=== PATIENT | female | born 1985 | race Caucasian/White ===

== ENCOUNTER 2019-12-08 18:15 | Emergency (ER) | payer SELFPAY ==
[2019-12-08 18:23] VITALS: BP 116/87
[2019-12-08] MEDS ORDERED: NORMAL SALINE 1000 ML 1,000 ML IV ONE (18:58)
--- NOTE | 2019-12-08 19:00 | ER Document Report ---
ED Medical Screen (RME) - General Chief Complaint: High Blood Pressure Stated Complaint: SWEATING,BLOOD SUGAR ISSUES Time Seen by Provider: 12/08/19 18:57 Mode of Arrival: Ambulatory Information source: Patient Notes: Patient presents complaining of feeling fatigued with decreased energy. Patient states she has been out of her thyroid medicine for 6 months and out of her long-acting insulin for the past 2 months. Patient has a history of hypothyroidism and insulin-dependent diabetes. Patient has been using her short acting insulin to help manage her diabetes in the interim. Patient is waiting for her 's insurance to start so that she can get established with a primary doctor. I have greeted and performed a rapid initial assessment of this patient. A comprehensive ED assessment and evaluation of the patient, analysis of test results and completion of the medical decision making process will be conducted by additional ED providers. Physical Exam - Vital signs Vitals: Temp Pulse Resp BP Pulse Ox 98.2 F 95 16 116/87 H 100 12/08/19 18:22 12/08/19 18:22 12/08/19 18:22 12/08/19 18:22 12/08/19 18:22 - General General appearance: Appears well, Alert In distress: None Course - Vital Signs Vital signs: Temp Pulse Resp BP Pulse Ox 98.2 F 95 16 116/87 H 100 12/08/19 18:22 12/08/19 18:22 12/08/19 18:22 12/08/19 18:22 12/08/19 18:22
[2019-12-08 19:31] LABS: VENOUS BLOOD BASE EXCESS -4.3 mmol/L; VENOUS BLOOD HCO3 20.4 mmol/L (20-32); VENOUS BLOOD PCO2 36.8 mmHg (35-63); VENOUS BLOOD PH 7.36 (7.30-7.42)
[2019-12-08 19:35] LABS: ABSOLUTE EOSINOPHILS # (AUTO) 0.1 10^3/uL (0.0-0.6); ABSOLUTE LYMPHOCYTES (AUTO) 1.4 10^3/uL (0.5-4.7); ABSOLUTE MONOCYTES (AUTO) 0.4 10^3/uL (0.1-1.4); ABSOLUTE NEUT (AUTO) 1.8 10^3/uL (1.7-8.2); BASOPHILS % (AUTO) 0.6 % (0-2); EOSINOPHILS % (AUTO) 3.9 % (0-6); LYMPHOCYTES % (AUTO) 36.4 % (13-45); MEAN CORPUSCULAR HEMOGLOBIN 30.6 pg (27.0-33.4); MEAN CORPUSCULAR HGB CONC 33.4 g/dL (32.0-36.0); MEAN CORPUSCULAR VOLUME 92 fl (80-97); MONOCYTES % (AUTO) 10.1 % (3-13); PLATELET COUNT 315 10^3/uL (150-450); RED BLOOD COUNT 4.59 10^6/uL (3.72-5.28); RED CELL DISTRIBUTION WIDTH 13.9 % (11.5-14.0); TOTAL CELLS COUNTED % (AUTO) 100 %; WHITE BLOOD COUNT 3.7 10^3/uL (4.0-10.5)
[2019-12-08 19:44] LABS: ALBUMIN 3.7 g/dL (3.5-5.0); ALKALINE PHOSPHATASE 213 U/L (38-126); ANION GAP 10 (5-19); ASPARTATE AMINO TRANSFERASE 182 U/L (14-36); BILIRUBIN,DIRECT 0.3 mg/dL (0.0-0.4); BILIRUBIN,TOTAL 0.4 mg/dL (0.2-1.3); BLOOD UREA NITROGEN 8 mg/dL (7-20); CALCIUM 8.9 mg/dL (8.4-10.2); CARBON DIOXIDE 23 mmol/L (22-30); CHLORIDE 102 mmol/L (98-107); GLUCOSE 207 mg/dL (75-110); POTASSIUM 4.5 mmol/L (3.6-5.0); TOTAL PROTEIN 6.8 g/dL (6.3-8.2)
[2019-12-08 19:53] LABS: APPEARANCE,URINE SLIGHTLY-CLOUDY; BILIRUBIN,URINE SMALL (NEGATIVE); COLOR,URINE AMBER; GLUCOSE, URINE >=500 mg/dL (NEGATIVE); KETONES,URINE 20 mg/dL (NEGATIVE); LEUKOCYTE ESTERASE,URINE NEGATIVE (NEGATIVE); NITRITE,URINE NEGATIVE (NEGATIVE); PROTEIN,URINE 30 mg/dL (NEGATIVE); URINE SPECIFIC GRAVITY 1.033
[2019-12-08 20:01] LABS: FREE T3 2.01 pg/mL (2.77-5.27); FREE T4 (FREE THYROXINE) 0.73 ng/dL (0.78-2.19)
[2019-12-08 20:14] LABS: THYROID STIMULATING HORMONE 5.75 uIU/mL (0.47-4.68)
== END 2019-12-08 19:55 | disposition left against medical advice (07) ==
LOC: ER 18:15
DX: R53.83 Other fatigue (principal); E11.9 Type 2 diabetes mellitus without complications; Z79.4 Long term (current) use of insulin; E03.9 Hypothyroidism, unspecified; Z53.20 Procedure and treatment not carried out because of patient's decision for unspecified reasons
CPT/HCPCS: 36415; 80053; 81001; 82803; 84439; 84443; 84481; 84703; 85025; 99281

== ENCOUNTER 2020-02-14 13:27 | Emergency (ER) | payer SELFPAY ==
[2020-02-14] MEDS ORDERED: NORMAL SALINE 1000 ML 1,000 ML IV ONE ×3 (13:51→15:51)
--- NOTE | 2020-02-14 13:54 | ER Document Report ---
ED Medical Screen (RME) - General Chief Complaint: High Blood Sugar Stated Complaint: BLOOD SUGAR ISSUES Time Seen by Provider: 02/14/20 13:49 Mode of Arrival: Ambulatory Information source: Patient Notes: 34-year-old female presented to ED for complaint of heart pounding fruity smell frequent thirst frequent urination. She states she did not take her insulin for several days because she could not find it. She states her son found the insulin this morning and she took 40 units of the NovoLog and now her sugar is back down to normal but she is still having the frequent urination and the thirst that shakiness and the heart pounding. Will get the DKA blood work and have her reevaluated. States this is not the first time she has been in DKA and she does not want to just be left off because her sugar is normal at this time. I have greeted and performed a rapid initial assessment of this patient. A comprehensive ED assessment and evaluation of the patient, analysis of test r esults and completion of medical decision making process will be conducted by an additional ED providers. - Related Data Allergies/Adverse Reactions: No Known Allergies Allergy (Unverified 02/14/20 13:49) Past Medical History - Social History Drug Abuse: None Physical Exam - Vital signs Vitals: Temp Pulse Resp BP Pulse Ox 97.7 F 91 18 138/55 H 98 02/14/20 13:49 02/14/20 13:49 02/14/20 13:49 02/14/20 13:49 02/14/20 13:49 Course - Vital Signs Vital signs: Temp Pulse Resp BP Pulse Ox 97.7 F 91 18 138/55 H 98 02/14/20 13:49 02/14/20 13:49 02/14/20 13:49 02/14/20 13:49 02/14/20 13:49 - Laboratory Laboratory results interpreted by me: 02/14/20 13:34 POC Glucose 123 H
[2020-02-14 14:22] LABS: APPEARANCE,URINE CLOUDY; BILIRUBIN,URINE NEGATIVE (NEGATIVE); COLOR,URINE YELLOW; GLUCOSE, URINE 150 mg/dL (NEGATIVE); KETONES,URINE 80 mg/dL (NEGATIVE); LEUKOCYTE ESTERASE,URINE TRACE (NEGATIVE); NITRITE,URINE NEGATIVE (NEGATIVE); PROTEIN,URINE 30 mg/dL (NEGATIVE); URINE SPECIFIC GRAVITY 1.026
[2020-02-14] MEDS ORDERED: ONDANSETRON HCL INJ/PF 4 MG/2 ML SDV IV ONE (14:28)
--- NOTE | 2020-02-14 14:29 | ER Document Report ---
ED General <GLADIS MARTINI - Last Filed: 02/14/20 20:22> - General Mode of Arrival: Ambulatory <ELIGIO CLARK - Last Filed: 02/15/20 07:18> - General Chief Complaint: High Blood Sugar Stated Complaint: BLOOD SUGAR ISSUES Time Seen by Provider: 02/14/20 13:49 - HPI Notes: Chief complaint: High blood sugars, dizziness, nausea, excessive thirst and urination History of present illness: 34-year-old female type I diabetic being treated with insulin on a sliding scale regimen for the last 11 years with multiple prior hospitalizations for DKA comes in today because her sugar is out of control. She states that family was moving and her insulin was misplaced and she therefore went without this for about 48 hours. Her glucometer read "high" last night and she could not find the insulin to dose herself. This morning it read high again and her located her insulin around 11 AM. She took 40 units of regular at that time. She feels nauseated but is not vomiting. She says her vision is blurry and she complains of excessive thirst and urination. She says her muscles feel "achy all over". 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 She denies any cardiovascular problems or kidney or liver disease that she is aware of. She has no known allergies. 3 para 3 with 3 previous C-sections. Last menses 1 week ago described as normal. Patient smokes about a pack of cigarettes per day. She consumes alcohol socially. Denies drug abuse. (ELIGIO CLARK) - Related Data Allergies/Adverse Reactions: No Known Allergies Allergy (Unverified 02/14/20 13:49) Past Medical History - General Information source: Patient - Social History Smoking Status: Current Every Day Smoker Drug Abuse: None Family History: Reviewed & Not Pertinent Patient has homicidal ideation: No Endocrine Medical History: Reports: Hx Diabetes Mellitus Type 1, Hx Hypothyroidism Past Surgical History: Reports: Hx Section <ELIGIO CLARK - Last Filed: 02/15/20 07:18> Review of Systems <ELIGIO CLARK - Last Filed: 02/15/20 07:18> - Review of Systems Notes: Constitutional: Negative for fever. HENT: Negative for sore throat. Eyes: Slightly blurred vision. Cardiovascular: Negative for chest pain. Respiratory: Negative for shortness of breath. Gastrointestinal: As per HPI. Genitourinary: As per HPI. Musculoskeletal: As per HPI. Skin: Negative for rash. Neurological: Negative for headaches, focal weakness or numbness. 10 point ROS negative except as marked above and in HPI. (ELIGIO CLARK) Physical Exam <ELIGIO CLARK - Last Filed: 02/15/20 07:18> - Vital signs Vitals: Temp Pulse Resp BP Pulse Ox 97.7 F 91 18 138/55 H 98 02/14/20 13:49 02/14/20 13:49 02/14/20 13:49 02/14/20 13:49 02/14/20 13:49 - Notes Notes: GENERAL: Mildly obese female of approximately stated age who does not appear in acute distress.. SKIN: Good turgor no rashes. HEAD: Normocephalic atraumatic. EYES: Eyes appear somewhat sunken consistent with dehydration. PERRLA. EOMI. Conjunctivae and sclerae clear. EARS: CANALS AND TMS CLEAR. NOSE: CLEAR. MOUTH: Moist mucosa. Good dentition. No stridor or edema. No drooling. NECK: Supple. No masses or thyromegaly. No adenopathy. Carotids 2+ without bruits. No JVD. BACK: Symmetrical without tenderness. CHEST: Respirations unlabored. Breath sounds clear and symmetrical. Patient IS NOT exhibiting obvious Kussmaul respirations. HEART: Regular rhythm. No murmur gallop or rub. ABDOMEN: Mildly obese. Soft nontender without masses, organomegaly or rebound. Bowel sounds normally active. No bruits. GENITALIA: Deferred. EXTREMITIES: No edema. No calf tenderness. Cap refill less than 1.5 seconds. Dorsalis pedis and posterior tibial pulses 3+ and symmetrical. NEUROLOGICAL: GCS 15. Alert and oriented x3. Normal gait. Fluent speech. Cranial nerves II through XII intact. Sensorimotor and cerebellar normal. Nor mal tone. PSYCHIATRIC: Appropriate affect. (ELIGIO CLARK) Course - Laboratory Result Diagrams: 02/14/20 14:58 02/14/20 19:10 <GLADIS MARTINI - Last Filed: 02/14/20 20:22> - Laboratory Result Diagrams: 02/14/20 14:58 02/14/20 19:10 <ELIGIO CLARK - Last Filed: 02/15/20 07:18> - Re-evaluation Re-evalutation: 02/14/20 20:22 I taken over the care of this patient from Dr. Clark. Patient has received 3 L of saline, blood sugar is now 85. She feels much better. A BMP was ordered, is not a significant change in the patient's bicarb or anion gap. I discussed this with the patient she states she does not want be admitted to the hospital and is plan to sign out AMA. I explained to her that she may still be in mild DKA, however that she has her insulin she can dose herself with her normal dosing and continue to hydrate by mouth. If the symptoms are worsening or if there is other concerns she may return to emergency department for further evaluation and treatment. Patient and her are in agreement with this plan. (GLADIS MARTINI) 02/14/20 15:53 Patient's blood glucose is relatively normal at 118. Her bicarb is slightly low at 17. Her anion gap is not increased. Her urinalysis shows large ketones and glycosuria. Clinically she looks dehydrated. Venous blood gas was requested at the time of this patient's presentation was was apparently misplaced by lab and has had to be repeated with results remaini ng pending at this time. We going to give this lady a couple liters of normal saline and then repeat a basic metabolic profile. Her nausea has been resolved with administration of Zofran. She is taking fluids without difficulty. Care of this patient is turned over to Dr. Martini at 1600 hrs. of final disposition pending although anticipate she will be discharged home. (ELIGIO CLARK) - Vital Signs Vital signs: Temp Pulse Resp BP Pulse Ox 97.7 F 91 17 114/74 100 02/14/20 13:49 02/14/20 13:49 02/14/20 20:00 02/14/20 20:00 02/14/20 20:00 - Laboratory Laboratory results interpreted by me: 02/14/20 02/14/20 02/14/20 13:34 14:01 14:58 VBG pH VBG HCO3 Sodium 133.8 L Carbon Dioxide 17 L BUN 21 H Glucose 118 H POC Glucose 123 H Calcium 10.5 H Alkaline Phosphatase 128 H Urine Protein 30 H Urine Glucose (UA) 150 H Urine Ketones 80 H Urine Urobilinogen 2.0 H Ur Leukocyte Esterase TRACE H 02/14/20 02/14/20 15:43 19:10 VBG pH 7.28 L VBG HCO3 18.0 L Sodium 133.4 L Carbon Dioxide 16 L BUN Glucose POC Glucose Calcium Alkaline Phosphatase Urine Protein Urine Glucose (UA) Urine Ketones Urine Urobilinogen Ur Leukocyte Esterase - EKG Interpretation by Me Additional EKG results interpreted by me: 02/14/20 15:52 Twelve-lead EKG reviewed by me contemporaneously: 1440 hrs. Indication for study: Dehydration/weakness Rhythm: Normal sinus Rate: 72 Intervals: Normal QRS axis: +[address]/T wave changes: None Comparison with prior tracing: None Interpretation: Normal tracing (ELIGIO CLARK) Discharge <GLADIS MARTINI - Last Filed: 02/14/20 20:22> <ELIGIO CLARK - Last Filed: 02/15/20 07:18> - Discharge Clinical Impression: Metabolic acidosis Diabetic ketoacidosis Qualifiers: Diabetes mellitus type: type 1 Diabetes mellitus complication detail: without coma Qualified Code(s): E10.10 - Type 1 diabetes mellitus with ketoacidosis without coma Condition: Good Disposition: HOME, SELF-CARE Instructions: Dehydration ([facility]) Additional Instructions: You were seen in the emergency department today with mild diabetic ketoacidosis, you were given 3 L of fluid and blood sugar improved to 85. Please continue to use your usual doses of insulin, hydrate well and monitor your symptoms closely. If your symptoms are worsening or if you have other concerns you may return to the emergency department for further evaluation and treatment. HOME CARE INSTRUCTIONS & INFORMATION: Thank you for choosing us for your medical needs. We hope you're satisfied with the care you received. After you leave, you must properly care for your problem and, at the same time, observe its progress. Any condition can change. Some illnesses can change rapidly over hours or days. If your condition worsens, return to the Emergency Department or see your physician promptly. ABOUT YOUR X-RAYS AND EKG'S: If you had an EKG or X-rays taken, they have been read by the Emergency Physician. The X-rays and EKG's will also be read by a Radiologist or Sewing Machine Operator within 24 hours. If discrepancies are noted, you will be notified by telephone. Please be certain the ED has a correct telephone number & address where you can be reached. Also, realize that some fractures or abnormalities do not show up on initial X-rays. If your symptoms continue, see your physician. ABOUT YOUR LABORATORY TEST: If you had laboratory tests, the results have been reviewed by the Emergency Physician. Some test results (for example cultures) may not be available for several days. You will be contacted if any test result shows you need additional treatment. Please be certain the ED has a correct telephone number and address where you can be reached. ABOUT YOUR MEDICATIONS: You will receive instructions on how to take your medicine on the prescription label you receive. Additional information may be provided by the Pharmacy. If you have questions afterwards, call the ED for clarification or further instructions. Some prescribed medications may cause drowsiness. Do not perform tasks such as driving a car or operating machinery without consulting your Pharmacist. If you feel you need a refill of pain medication, your condition will need re-evaluation. Please do not call for a refill of any medication. ABOUT YOUR SIGNATURE: Signature of this document acknowledges to followin. Understanding that you received emergency treatment and that you may be released before al medical problems are known or treated. Please be certain the ED has a correct phone number & address where you can be reached. 2. Acknowledgement that you will arrange for follow-up care as recommended. 3. Authorization for the Emergency Physician to provide information to your f ollow-up Physician in order to maximize your care. AT ANY TIME, IF YOUR SYMPTOMS CHANGE SIGNIFICANTLY OR WORSEN OR YOU DEVELOP NEW SYMPTOMS, RETURN TO THE EMERGENCY DEPARTMENT IMMEDIATELY FOR RE-EVALUATION. OUR GOAL IS TO PROVIDE EXCELLENT MEDICAL CARE! WE HOPE THAT WE HAVE MET YOUR EXPECTATIONS DURING YOUR EMERGENCY DEPARTMENT VISIT AND THAT YOU FEEL YOU HAVE RECEIVED EXCELLENT CARE!
[2020-02-14 15:06] LABS: ABSOLUTE BASOPHILS # (AUTO) 0.1 10^3/uL (0.0-0.2); ABSOLUTE EOSINOPHILS # (AUTO) 0.2 10^3/uL (0.0-0.6); ABSOLUTE LYMPHOCYTES (AUTO) 2.7 10^3/uL (0.5-4.7); ABSOLUTE MONOCYTES (AUTO) 0.4 10^3/uL (0.1-1.4); ABSOLUTE NEUT (AUTO) 6.3 10^3/uL (1.7-8.2); BASOPHILS % (AUTO) 0.8 % (0-2); EOSINOPHILS % (AUTO) 2.5 % (0-6); HEMATOCRIT 42.8 % (36.0-47.0); LYMPHOCYTES % (AUTO) 27.8 % (13-45); MEAN CORPUSCULAR HEMOGLOBIN 31.4 pg (27.0-33.4); MEAN CORPUSCULAR VOLUME 90 fl (80-97); MONOCYTES % (AUTO) 4.5 % (3-13); PLATELET COUNT 403 10^3/uL (150-450); RED BLOOD COUNT 4.77 10^6/uL (3.72-5.28); RED CELL DISTRIBUTION WIDTH 11.9 % (11.5-14.0); SEGMENTED NEUTROPHILS % (AUTO) 64.4 % (42-78); TOTAL CELLS COUNTED % (AUTO) 100 %; WHITE BLOOD COUNT 9.7 10^3/uL (4.0-10.5)
[2020-02-14 15:27] LABS: ALBUMIN 4.6 g/dL (3.5-5.0); ALKALINE PHOSPHATASE 128 U/L (38-126); ANION GAP 18 (5-19); ASPARTATE AMINO TRANSFERASE 27 U/L (14-36); BILIRUBIN,DIRECT 0.2 mg/dL (0.0-0.4); BILIRUBIN,TOTAL 0.5 mg/dL (0.2-1.3); BLOOD UREA NITROGEN 21 mg/dL (7-20); CALCIUM 10.5 mg/dL (8.4-10.2); CARBON DIOXIDE 17 mmol/L (22-30); CHLORIDE 99 mmol/L (98-107); GLUCOSE 118 mg/dL (75-110); POTASSIUM 4.4 mmol/L (3.6-5.0); TOTAL PROTEIN 7.8 g/dL (6.3-8.2)
[2020-02-14 15:54] LABS: VENOUS BLOOD BASE EXCESS -8.2 mmol/L; VENOUS BLOOD PCO2 39.3 mmHg (35-63); VENOUS BLOOD PH 7.28 (7.30-7.42)
--- NOTE | 2020-02-14 19:53 | EKG REPORT ---
SEVERITY:- NORMAL ECG - SINUS RHYTHM : Confirmed by: Javier Woodard MD 14-Feb-2020 19:52:28
[2020-02-14 19:55] LABS: ANION GAP 12 (5-19); BLOOD UREA NITROGEN 17 mg/dL (7-20); CALCIUM 8.8 mg/dL (8.4-10.2); CARBON DIOXIDE 16 mmol/L (22-30); CHLORIDE 105 mmol/L (98-107); GLUCOSE 85 mg/dL (75-110); POTASSIUM 4.3 mmol/L (3.6-5.0)
[2020-02-14 20:05] VITALS: BP 114/74
== END 2020-02-14 20:38 | disposition home or self-care (01) ==
LOC: ER 13:27
DX: E10.10 Type 1 diabetes mellitus with ketoacidosis without coma (principal); E66.01 Morbid (severe) obesity due to excess calories; F17.210 Nicotine dependence, cigarettes, uncomplicated; Z79.4 Long term (current) use of insulin
CPT/HCPCS: 93005; 99284; 36415; 82962; 85025; 80053; 81001; 82803; 93010; J2405; J7030

== ENCOUNTER 2020-02-17 16:18 | Inpatient (IN) | payer SELFPAY ==
[2020-02-17] MEDS ORDERED: NORMAL SALINE 1000 ML 1,000 ML IV ONE (16:41)
--- NOTE | 2020-02-17 16:42 | ER Document Report ---
ED Medical Screen (RME) - General Chief Complaint: High Blood Sugar Stated Complaint: NAUSEA/VOMITING/TIRED/FREQUENT URINATION Time Seen by Provider: 02/17/20 16:39 Mode of Arrival: Ambulatory Information source: Patient Notes: 34-year-old female presents to ED for complaint of elevated blood sugar. She states is been high all day. Her sugar is 557 right now. She is type I diabetic. Her sugar was elevated a couple days ago when she was in here they gave her fluids and discharged home with instructions to take her insulin. She states she is not taking any insulin since yesterday because she did not have the money to buy more insulin. She states her makes too much money for her to get Medicaid and they cannot afford the insulin and the medical bills. Patient is alert oriented states she feels very weak and tired and her kidneys both hurt. States she has been vomiting all day. I have greeted and performed a rapid initial assessment of this patient. A comprehensive ED assessment and evaluation of the patient, analysis of test results and completion of medical decision making process will be conducted by an additional ED providers. - Related Data Allergies/Adverse Reactions: No Known Allergies Allergy (Unverified 02/14/20 13:49) Past Medical History Endocrine Medical History: Reports: Hx Diabetes Mellitus Type 1, Hx Hypothyroidism Past Surgical History: Reports: Hx Section Physical Exam - Vital signs Vitals: Temp Pulse Resp BP Pulse Ox 97.7 F 92 20 128/95 H 98 02/17/20 16:23 02/17/20 16:23 02/17/20 16:23 02/17/20 16:23 02/17/20 16:23 Course - Vital Signs Vital signs: Temp Pulse Resp BP Pulse Ox 97.7 F 92 20 128/95 H 98 02/17/20 16:23 02/17/20 16:23 02/17/20 16:23 02/17/20 16:23 02/17/20 16:23
[2020-02-17 17:13] LABS: APPEARANCE,URINE SLIGHTLY-CLOUDY; BILIRUBIN,URINE NEGATIVE (NEGATIVE); COLOR,URINE YELLOW; GLUCOSE, URINE >=500 mg/dL (NEGATIVE); KETONES,URINE 80 mg/dL (NEGATIVE); LEUKOCYTE ESTERASE,URINE NEGATIVE (NEGATIVE); NITRITE,URINE NEGATIVE (NEGATIVE); PROTEIN,URINE NEGATIVE (NEGATIVE); URINE SPECIFIC GRAVITY 1.028; UROBILINOGEN,URINE NEGATIVE mg/dL (<2.0)
[2020-02-17] MEDS ORDERED: MORPHINE SULFATE 10 MG/ML INJ IV ONE (17:22)
[2020-02-17] MEDS ORDERED: ONDANSETRON HCL INJ/PF 4 MG/2 ML SDV IV ONE (17:22)
[2020-02-17 17:50] LABS: ABSOLUTE BASOPHILS # (AUTO) 0.1 10^3/uL (0.0-0.2); ABSOLUTE EOSINOPHILS # (AUTO) 0.2 10^3/uL (0.0-0.6); ABSOLUTE LYMPHOCYTES (AUTO) 2.4 10^3/uL (0.5-4.7); ABSOLUTE MONOCYTES (AUTO) 0.4 10^3/uL (0.1-1.4); ABSOLUTE NEUT (AUTO) 8.9 10^3/uL (1.7-8.2); BASOPHILS % (AUTO) 0.5 % (0-2); EOSINOPHILS % (AUTO) 1.4 % (0-6); HEMATOCRIT 42.8 % (36.0-47.0); HEMOGLOBIN 14.3 g/dL (12.0-15.5); LYMPHOCYTES % (AUTO) 20.2 % (13-45); MEAN CORPUSCULAR HEMOGLOBIN 31.4 pg (27.0-33.4); MEAN CORPUSCULAR HGB CONC 33.5 g/dL (32.0-36.0); PLATELET COUNT 369 10^3/uL (150-450); RED BLOOD COUNT 4.56 10^6/uL (3.72-5.28); RED CELL DISTRIBUTION WIDTH 11.8 % (11.5-14.0); SEGMENTED NEUTROPHILS % (AUTO) 74.9 % (42-78); TOTAL CELLS COUNTED % (AUTO) 100 %; WHITE BLOOD COUNT 11.8 10^3/uL (4.0-10.5)
[2020-02-17 18:09] LABS: MEAN CORPUSCULAR VOLUME 94 fl (80-97)
--- NOTE | 2020-02-17 18:11 | EKG REPORT ---
SEVERITY:- NORMAL ECG - SINUS RHYTHM : Confirmed by: Javier Woodard MD 17-Feb-2020 18:11:22
[2020-02-17 18:18] LABS: ALBUMIN 4.4 g/dL (3.5-5.0); ALKALINE PHOSPHATASE 162 U/L (38-126); ASPARTATE AMINO TRANSFERASE 28 U/L (14-36); BILIRUBIN,DIRECT 0.3 mg/dL (0.0-0.4); BILIRUBIN,TOTAL 0.8 mg/dL (0.2-1.3); BLOOD UREA NITROGEN 16 mg/dL (7-20); CALCIUM 9.5 mg/dL (8.4-10.2); POTASSIUM 5.5 mmol/L (3.6-5.0); TOTAL PROTEIN 7.1 g/dL (6.3-8.2)
[2020-02-17] MEDS: NORMAL SALINE 1000 ML 1,000 ML IV PRN ×2 (18:20→19:19)
[2020-02-17 18:23] LABS: CARBON DIOXIDE 11 mmol/L (22-30); CHLORIDE 94 mmol/L (98-107)
[2020-02-17 18:26] LABS: ANION GAP 24 (5-19)
[2020-02-17 18:27] LABS: GLUCOSE 601 mg/dL (75-110)
[2020-02-17] MEDS ORDERED: NORMAL SALINE 100 ML with INSULIN REGULAR, HUMAN 100 UNIT IV PRN ×2 (18:31)
--- NOTE | 2020-02-17 18:46 | ER Document Report ---
ED General - General Chief Complaint: High Blood Sugar Stated Complaint: NAUSEA/VOMITING/TIRED/FREQUENT URINATION Time Seen by Provider: 02/17/20 16:39 Mode of Arrival: Ambulatory - HPI Notes: Patient is a 34-year-old female a history of type 1 diabetes and Madison's thyroiditis presents the emergency department for nausea, abdominal pain, concerned that she may be in DKA. The patient had lost her insulin last week. She was seen here, found to be mildly acidotic, but asked to go home. She states that since then she is run out of her insulin. She has generalized abdominal pain. She has had severe nausea but no emesis. No fevers or chills. No coughing or shortness of breath. Normal urination, although increased frequency. - Related Data Allergies/Adverse Reactions: No Known Allergies Allergy (Unverified 02/14/20 13:49) Past Medical History - General Information source: Patient - Social History Smoking Status: Current Every Day Smoker Chew tobacco use (# tins/day): No Drug Abuse: None Family History: Reviewed & Not Pertinent Patient has homicidal ideation: No Endocrine Medical History: Reports: Hx Diabetes Mellitus Type 1, Hx Hypothyroidism Past Surgical History: Reports: Hx Section Review of Systems - Review of Systems Constitutional: Malaise, Weakness EENT: No symptoms reported Cardiovascular: No symptoms reported Respiratory: No symptoms reported Gastrointestinal: See HPI Genitourinary: No symptoms reported Female Genitourinary: No symptoms reported Musculoskeletal: No symptoms reported Skin: No symptoms reported Neurological/Psychological: No symptoms reported -: Yes All other systems reviewed and negative Physical Exam - Vital signs Vitals: Temp Pulse Resp BP Pulse Ox 97.7 F 92 20 128/95 H 98 02/17/20 16:23 02/17/20 16:23 02/17/20 16:23 02/17/20 16:23 02/17/20 16:23 - Notes Notes: Vital signs reviewed, please refer to chart. Head is normocephalic, atraumatic. Pupils equal round, reactive to light. Neck is supple without meningismus. Heart is regular rate and rhythm. Lungs are clear to auscultation bilaterally. Abdomen is soft, nontender, normoactive bowel sounds throughout. Extremities without cyanosis, clubbing. Posterior calves are nontender. Peripheral pulses are equal. Skin is warm and dry. Patient is awake, alert, oriented x3. Cranial nerves II - XII are grossly intact without focal neurological deficits. Strength is plus 5 out of 5 bilateral upper and lower extremities. Sensation is intact. Reflexes symmetrical. Intact [id number], rapid alternating movements, [id number]. Course - Re-evaluation Re-evalutation: 02/17/20 18:45 Patient presents to the emergency department for evaluation. Laboratory investigations and IV fluids were ordered. The patient was found to be in DKA. Her blood glucose is over 600. Her bicarb is 11. She has an elevated anion gap. Patient was administered IV fluids, insulin drip is ordered. I spoke with Dr. Cancino, who graciously accepted the patient on behalf of Dr. Rushing. Still awaiting VBG as well as urine , although patient states that her last menstrual period was about 2 and half weeks ago. Nursing notified that these labs are still pending. 02/17/20 21:03 Internal medicine physician is awaiting further work-up to determine ultimate disposition. She is currently stable. - Vital Signs Vital signs: Temp Pulse Resp BP Pulse Ox 98.4 F 92 17 103/55 L 100 02/17/20 20:18 02/17/20 16:23 02/17/20 20:18 02/17/20 20:18 02/17/20 20:18 - Laboratory Result Diagrams: 02/17/20 17:00 02/17/20 17:00 Laboratory results interpreted by me: 02/17/20 02/17/20 02/17/20 16:38 17:00 17:00 WBC 11.8 H Absolute Neuts (auto) 8.9 H VBG pH VBG pCO2 VBG HCO3 Sodium 129.1 L Potassium 5.5 H Chloride 94 L Carbon Dioxide 11 L Anion Gap 24 H Glucose 601 H* POC Glucose Alkaline Phosphatase 162 H Urine Glucose (UA) >=500 H Urine Ketones 80 H 02/17/20 02/17/20 18:38 19:10 WBC Absolute Neuts (auto) VBG pH 7.14 L* VBG pCO2 25.7 L VBG HCO3 8.6 L Sodium Potassium Chloride Carbon Dioxide Anion Gap Glucose POC Glucose 515 H* Alkaline Phosphatase Urine Glucose (UA) Urine Ketones Discharge - Discharge Clinical Impression: Diabetic ketoacidosis Qualifiers: Diabetes mellitus type: type 1 Diabetes mellitus complication detail: without coma Qualified Code(s): E10.10 - Type 1 diabetes mellitus with ketoacidosis without coma Condition: Stable Disposition: ADMITTED INPATIENT Admitting Provider: Kristan Unit Admitted: NANI
[2020-02-17] MEDS ORDERED: INSULIN REG, HUMAN 100 UNIT/ML 3 ML VIAL (PYX) ONE (18:49)
[2020-02-17 19:44] LABS: VENOUS BLOOD BASE EXCESS -18.6 mmol/L; VENOUS BLOOD HCO3 8.6 mmol/L (20-32); VENOUS BLOOD PCO2 25.7 mmHg (35-63)
[2020-02-17] MEDS ORDERED: NORMAL SALINE 1000 ML 1,000 ML IV PRN (21:00)
[2020-02-17] MEDS ORDERED: DEXTROSE 50%-WATER 25 GM/50 ML DISP.SYRIN IV PRN ×2 (21:00)
[2020-02-17] MEDS ORDERED: ONDANSETRON HCL INJ/PF 4 MG/2 ML SDV IV PRN (21:00)
[2020-02-17] MEDS ORDERED: DEXTROSE 40% GEL 15 GM TUBE PO PRN ×2 (21:00)
[2020-02-17] MEDS ORDERED: GLUCAGON,HUMAN RECOMB 1 MG INJ SUBCUT PRN (21:00)
[2020-02-17] MEDS ORDERED: ACETAMINOPHEN 325 MG TABLET PO PRN (21:00)
--- NOTE | 2020-02-17 21:24 | PDOC H&P ---
History of Present Illness Admission Date/PCP: 02/17/20 19:11 Patient complains of: Nausea, vomiting, abdominal pain History of Present Illness: DASH DOYLE is a 34 year old female with a history of type 1 diabetes, obesity and Madison's thyroiditis who presents to ER complaining of generalized abdominal pain, nausea, generalized weakness, lightheadedness. Patient states that he has been having a burning epigastric pain for the past 2 days. She feels very nauseated but that she has been having dry hiccups. She states that she has been having difficulty affording her insulin and she has missed her insulin since yesterday. She endorses polydipsia and polyuria but denies any history of dysuria. She reports that she has had multiple episodes of DKA in the past due to running out of her insulin. She denies any fever, chills, cough, runny nose, nasal congestion, chest pain, shortness of breath, palpitation, or weakness of extremities. Patient also denies any recent sick contact history. Past Medical History Endocrine Medical History: Reports: Diabetes Mellitus Type 1, Hypothyroidism Past Surgical History Past Surgical History: Reports: Section Social History Information Source: Patient Lives with: Family Smoking Status: Current Every Day Smoker Electronic Cigarette use?: No Hx Recreational Drug Use: No - Advance Directive Resuscitation Status: Full Code Family History Family History: Reviewed & Not Pertinent Parental Family History Reviewed: Yes Children Family History Reviewed: Yes Sibling(s) Family History Reviewed.: Yes Medication/Allergy Home Medications: Insulin Aspart [Novolog] 0 unit SQ .SLIDING SCALE 02/17/20 Insulin Glargine,Hum.rec.anlog [Basaglar Kwikpen U-100] 55 unit SQ QHS 02/17/20 Levothyroxine Sodium [Synthroid 0.1 mg Tablet] 0.1 mg PO DAILY 02/17/20 Allergies/Adverse Reactions: No Known Allergies Allergy (Unverified 02/14/20 13:49) Review of Systems Constitutional: PRESENT: as per HPI Eyes: ABSENT: visual disturbances Ears: ABSENT: hearing changes Nose, Mouth, and Throat: ABSENT: headache(s), mouth pain, sore throat, vertigo, other Cardiovascular: ABSENT: chest pain, dyspnea on exertion, edema, orthropnea, palpitations Respiratory: ABSENT: cough, hemoptysis Gastrointestinal: PRESENT: as per HPI Genitourinary: PRESENT: as per HPI Musculoskeletal: ABSENT: joint swelling Integumentary: ABSENT: rash, wounds Neurological: ABSENT: abnormal gait, abnormal speech, confusion, dizziness, focal weakness, syncope Psychiatric: ABSENT: anxiety, depression, homidical ideation, suicidal ideation Endocrine: PRESENT: as per HPI Hematologic/Lymphatic: ABSENT: easy bleeding, easy bruising Physical Exam Vital Signs: Temp Pulse Resp BP Pulse Ox 98.4 F 92 17 103/55 L 100 02/17/20 20:18 02/17/20 16:23 02/17/20 20:18 02/17/20 20:18 02/17/20 20:18 Intake & Output 02/16/20 02/17/20 02/18/20 06:59 06:59 06:59 Intake Total 3000 Balance 3000 Weight 108.8 kg Additional comments: GENERAL APPEARANCE: Alert and oriented x4, not in acute distress HEENT: Normocephalic and atraumatic. No scleral icterus. Dry oral mucosa NECK: Supple. No thyroid enlargement noted. No lymphadenopathy. No JVD CHEST: Symmetric. Nontender to palpation. LUNGS: Breath sounds are equal and clear bilaterally. No wheezes, rhonchi, or rales. HEART: Regular rate and rhythm with normal S1 and S2. No murmurs, gallops, or rubs. ABDOMEN: Full, moves with respiration, normoactive bowel sounds, nontender, no organomegaly or mass detected. No CVA tenderness EXTREMITIES: No cyanosis, clubbing, or edema. MUSCULOSKELETAL: No deformity, atrophy or swelling noted PSYCHIATRIC: Recent and remote memory is intact. Appropriate mood and affect. SKIN: Warm, dry, and well perfused. No lesions or rashes are noted. NEUROLOGIC: No focal sensory or motor deficits are noted. Results Laboratory Results: 02/17/20 17:00 02/17/20 17:00 02/17/20 02/17/20 02/17/20 16:38 17:00 17:00 WBC 11.8 H RBC 4.56 Hgb 14.3 Hct 42.8 MCV 94 D MCH 31.4 MCHC 33.5 RDW 11.8 Plt Count 369 Seg Neutrophils % 74.9 VBG pH VBG pCO2 VBG HCO3 VBG Base Excess Sodium 129.1 L Potassium 5.5 H Chloride 94 L Carbon Dioxide 11 L Anion Gap 24 H BUN 16 Creatinine 0.78 Est GFR ( Amer) > 60 Glucose 601 H* Calcium 9.5 Total Bilirubin 0.8 AST 28 Alkaline Phosphatase 162 H Total Protein 7.1 Albumin 4.4 Urine Color YELLOW Urine Appearance SLIGHTLY-CLOUDY Urine pH 5.0 Ur Specific [place] 1.028 Urine Protein NEGATIVE Urine Glucose (UA) >=500 H Urine Ketones 80 H Urine Blood NEGATIVE Urine Nitrite NEGATIVE Ur Leukocyte Esterase NEGATIVE Urine WBC (Auto) 0 Urine RBC (Auto) 0 02/17/20 18:38 WBC RBC Hgb Hct MCV MCH MCHC RDW Plt Count Seg Neutrophils % VBG pH 7.14 L* VBG pCO2 25.7 L VBG HCO3 8.6 L VBG Base Excess -18.6 Sodium Potassium Chloride Carbon Dioxide Anion Gap BUN Creatinine Est GFR ( Amer) Glucose Calcium Total Bilirubin AST Alkaline Phosphatase Total Protein Albumin Urine Color Urine Appearance Urine pH Ur Specific [place] Urine Protein Urine Glucose (UA) Urine Ketones Urine Blood Urine Nitrite Ur Leukocyte Esterase Urine WBC (Auto) Urine RBC (Auto) Assessment and Plan - Diagnosis (1) Diabetic ketoacidosis Qualifiers: Diabetes mellitus type: type 1 Diabetes mellitus complication detail: with out coma Qualified Code(s): E10.10 - Type 1 diabetes mellitus with ketoac idosis without coma Is this a current diagnosis for this admission?: Yes Plan: Likely precipitated by medication noncompliance VBG: Showed a pH of 7.14, had anion gap of 24 with a bicarb of 11 and urine positive for ketones Patient was hydrated with 2 L at the ER Started on insulin infusion per protocol Choice of IV fluid and potassium supplement per DKA protocol Will closely monitor electrolytes every 4 hourly Once out of DKA will place her on basal and mealtime insulin with Accu-Cheks Consult case management for possible medication assistance (2) Hypothyroidism Is this a current diagnosis for this admission?: Yes Plan: Denies symptoms of hypothyroidism Continue levothyroxine Obtain TSH in the a.m. (3) Obesity Is this a current diagnosis for this admission?: Yes Plan: Lifestyle modification including dietary change and exercise recommended (4) Poorly controlled type 1 diabetes mellitus Is this a current diagnosis for this admission?: Yes Plan: obtain A1c this a.m. [place] case filler/director of social services for possible medication assistance Diabetic education, Accu-Chek, hypoglycemia protocol Will resume basal and mealtime insulin once patient out of DKA - Time Time Spent with patient: 35 or more minutes Total Critical Time (Minutes): 45 Smoking Cessation Education: 3 to 10 minutes Medications reviewed and adjusted accordingly: Yes Anticipated Discharge Disposition: Home, Self Care Anticipated Discharge Timeframe: within 72 hours - Inpatient Certification Based on my medical assessment, after consideration of the patient's comorbidities, presenting symptoms, or acuity I expect that the services needed warrant INPATIENT care.: Yes I certify that my determination is in accordance with my understanding of Medicare's requirements for reasonable and necessary INPATIENT services [42 CFR 412.3e].: Yes Medical Necessity: Need Close Monitoring Due to Risk of Patient Decompensation, Need For IV Fluids, Risk of Complication if Not Cared For in Hospital Post Hospital Care: D/C or Transfer Summary
[2020-02-17] MEDS ORDERED: FAMOTIDINE 20 MG TABLET PO SCH (22:00)
[2020-02-17 22:01] LABS: BLOOD UREA NITROGEN 14 mg/dL (7-20); GLUCOSE 347 mg/dL (75-110)
[2020-02-17 22:07] LABS: CHLORIDE 106 mmol/L (98-107)
[2020-02-17 22:22] LABS: POTASSIUM 4.4 mmol/L (3.6-5.0)
[2020-02-17 22:24] LABS: ANION GAP 22 (5-19)
[2020-02-17 22:27] LABS: CARBON DIOXIDE 7 mmol/L (22-30)
[2020-02-17] MEDS ORDERED: POTASSI CL 20 MEQ/1/2NS 1L 20 MEQ/1,000 ML RTUINJ IV PRN (22:29)
[2020-02-18] MEDS ORDERED: DEXTROSE 5%-1/2 NORMAL SALINE 1,000 ML IV PRN ×2 (01:15→04:30)
[2020-02-18 02:01] LABS: ANION GAP 9 (5-19); BLOOD UREA NITROGEN 10 mg/dL (7-20); CALCIUM 7.9 mg/dL (8.4-10.2); CARBON DIOXIDE 15 mmol/L (22-30); CHLORIDE 110 mmol/L (98-107); GLUCOSE 135 mg/dL (75-110)
[2020-02-18] MEDS ORDERED: INSULIN GLARGINE,HUM.REC.ANLOG 1,000 UNIT/10 ML VIAL SUBCUT ONE (04:14)
[2020-02-18] MEDS ORDERED: INSULIN GLARGINE,HUM.REC.ANLOG 1,000 UNIT/10 ML VIAL (PYX) SUBCUT ONE ×2 (04:30→15:30)
[2020-02-18 06:04] LABS: ABSOLUTE EOSINOPHILS # (AUTO) 0.3 10^3/uL (0.0-0.6); ABSOLUTE LYMPHOCYTES (AUTO) 2.4 10^3/uL (0.5-4.7); ABSOLUTE MONOCYTES (AUTO) 0.4 10^3/uL (0.1-1.4); ABSOLUTE NEUT (AUTO) 2.7 10^3/uL (1.7-8.2); BASOPHILS % (AUTO) 0.7 % (0-2); EOSINOPHILS % (AUTO) 4.7 % (0-6); HEMATOCRIT 35.6 % (36.0-47.0); HEMOGLOBIN 12.6 g/dL (12.0-15.5); LYMPHOCYTES % (AUTO) 40.9 % (13-45); MEAN CORPUSCULAR HEMOGLOBIN 31.5 pg (27.0-33.4); MEAN CORPUSCULAR HGB CONC 35.4 g/dL (32.0-36.0); MONOCYTES % (AUTO) 7.4 % (3-13); PLATELET COUNT 287 10^3/uL (150-450); RED BLOOD COUNT 4.01 10^6/uL (3.72-5.28); RED CELL DISTRIBUTION WIDTH 11.7 % (11.5-14.0); SEGMENTED NEUTROPHILS % (AUTO) 46.3 % (42-78); TOTAL CELLS COUNTED % (AUTO) 100 %; WHITE BLOOD COUNT 5.7 10^3/uL (4.0-10.5)
[2020-02-18 06:11] LABS: MEAN CORPUSCULAR VOLUME 89 fl (80-97)
[2020-02-18 06:18] LABS: ANION GAP 11 (5-19); BLOOD UREA NITROGEN 9 mg/dL (7-20); CARBON DIOXIDE 15 mmol/L (22-30); CHLORIDE 108 mmol/L (98-107); GLUCOSE 134 mg/dL (75-110); POTASSIUM 4.2 mmol/L (3.6-5.0)
[2020-02-18] MEDS ORDERED: NORMAL SALINE 1000 ML 1,000 ML IV ONE ×3 (08:14→18:46)
[2020-02-18] MEDS ORDERED: ENOXAPARIN SODIUM INJ 40 MG/0.4 ML DISP.SYRIN SUBCUT SCH (10:00)
[2020-02-18] MEDS: LEVOTHYROXINE SODIUM 0.1 MG TABLET PO SCH (12:08)
[2020-02-18 13:37] LABS: VENOUS BLOOD PH 7.14 (7.30-7.42)
[2020-02-18] MEDS: INSULIN LISPRO 100 UNIT/ML 3 ML VIAL SUBCUT SCH ×2 (17:05→21:58)
--- NOTE | 2020-02-18 17:55 | PDOC PROGRESS REPORT ---
Subjective Progress Note for:: 02/18/20 Subjective:: Patient is resting in bed comfortably. She tells me that she is hungry and is requesting food. Denies abdominal pain nausea vomiting or diarrhea. Patient is without insurance and reports very current difficulties with 's insurance, thus unable to consistently obtain insulin. History of multiple DKA in the past 2 years. No further complaints or concerns. Discussed case with patient's nurse. Overall patient is doing well. Blood sugar consistently 130-190 while on insulin drip. Reason For Visit: DIABETIC KETOACIDOSIS Physical Exam Vital Signs: Temp Pulse Resp BP Pulse Ox 98.2 F 81 18 107/59 L 100 02/18/20 15:49 02/18/20 15:49 02/18/20 15:49 02/18/20 15:49 02/18/20 15:49 Intake & Output 02/17/20 02/18/20 02/19/20 06:59 06:59 06:59 Intake Total 3506 240 Output Total 300 Balance 3206 240 Weight 111.8 kg General appearance: PRESENT: no acute distress, cooperative, morbidly obese Head exam: PRESENT: atraumatic, normocephalic Eye exam: PRESENT: conjunctiva pink. ABSENT: scleral icterus Mouth exam: PRESENT: moist, tongue midline Neck exam: PRESENT: full ROM. ABSENT: tenderness Respiratory exam: PRESENT: clear to auscultation luis, symmetrical, unlabored. ABSENT: tachypnea, wheezes Cardiovascular exam: PRESENT: RRR, +S1, +S2. ABSENT: diastolic murmur, systolic murmur Pulses: PRESENT: normal radial pulses GI/Abdominal exam: PRESENT: normal bowel sounds, soft. ABSENT: distended, firm, tenderness Extremities exam: PRESENT: full ROM. ABSENT: clubbing, pedal edema Musculoskeletal exam: PRESENT: ambulatory, full ROM. ABSENT: deformity, dislocation Neurological exam: PRESENT: alert, awake, oriented to person, oriented to place, oriented to time, oriented to situation, CN II-XII grossly intact. ABSENT: altered, motor sensory deficit Psychiatric exam: PRESENT: appropriate affect, normal mood Skin exam: PRESENT: dry, intact, warm Results Laboratory Results: 02/18/20 05:35 02/18/20 05:35 02/17/20 02/17/20 02/17/20 17:00 17:00 18:38 WBC 11.8 H RBC 4.56 Hgb 14.3 Hct 42.8 MCV 94 D MCH 31.4 MCHC 33.5 RDW 11.8 Plt Count 369 Seg Neutrophils % 74.9 VBG pH 7.14 L* VBG pCO2 25.7 L VBG HCO3 8.6 L VBG Base Excess -18.6 Sodium 129.1 L Potassium 5.5 H Chloride 94 L Carbon Dioxide 11 L Anion Gap 24 H BUN 16 Creatinine 0.78 Est GFR ( Amer) > 60 Glucose 601 H* Calcium 9.5 Total Bilirubin 0.8 AST 28 Alkaline Phosphatase 162 H Total Protein 7.1 Albumin 4.4 TSH 02/17/20 02/18/20 02/18/20 21:07 01:28 05:35 WBC RBC Hgb Hct MCV MCH MCHC RDW Plt Count Seg Neutrophils % VBG pH VBG pCO2 VBG HCO3 VBG Base Excess Sodium 134.9 L 134.4 L 133.6 L Potassium 4.4 D 4.0 4.2 Chloride 106 110 H 108 H Carbon Dioxide 7 L* 15 L 15 L Anion Gap 22 H 9 11 BUN 14 10 9 Creatinine 0.70 0.47 L 0.45 L Est GFR ( Amer) > 60 > 60 > 60 Glucose 347 H 135 H 134 H Calcium 8.0 L 7.9 L 8.0 L Total Bilirubin AST Alkaline Phosphatase Total Protein Albumin TSH 02/18/20 02/18/20 05:35 05:35 WBC 5.7 RBC 4.01 Hgb 12.6 Hct 35.6 L MCV 89 D MCH 31.5 MCHC 35.4 RDW 11.7 Plt Count 287 Seg Neutrophils % 46.3 VBG pH VBG pCO2 VBG HCO3 VBG Base Excess Sodium Potassium Chloride Carbon Dioxide Anion Gap BUN Creatinine Est GFR ( Amer) Glucose Calcium Total Bilirubin AST Alkaline Phosphatase Total Protein Albumin TSH 0.94 Assessment and Plan - Diagnosis (1) Diabetic ketoacidosis Qualifiers: Diabetes mellitus type: type 1 Diabetes mellitus complication detail: without coma Qualified Code(s): E10.10 - Type 1 diabetes mellitus with ketoacidosis without coma Is this a current diagnosis for this admission?: Yes Plan: Resolved with IV hydration, potassium repletion, NPO, insulin drip. Initial labs: VBG showed a pH of 7.14, had anion gap of 24 with a bicarb of 11 and urine positive for ketones S/p treatment: Anion gap 11, bicarb 15 Stop insulin drip Initiate home Lantus (total 55u today) and prandial sliding scale. Consult case management for possible medication assistance. health educator consulted regarding medication assistance. Arrange f[facility]u at [facility]. Repeat BMP and UA tomorrow. (2) Metabolic acidosis Is this a current diagnosis for this admission?: Yes Plan: Anion gap metabolic acidosis secondary to DKA. Anion gap has closed. Carbon dioxide 15. Monitor on morning BMP. (3) Poorly controlled type 1 diabetes mellitus Is this a current diagnosis for this admission?: Yes Plan: Hem A1c 8.1%. apparel manager, discharge planning and health educator provided pt support with medication management. Resume home lantus 55u qhs and 0-12 sliding scale prandial insulin. Continue Accu-checks. (4) Hypothyroidism Qualifiers: Hypothyroidism type: acquired Qualified Code(s): E03.9 - Hypothyroidism, unspecified Is this a current diagnosis for this admission?: Yes Plan: Denies symptoms of hypothyroidism Continue levothyroxine TSH 0.94. (5) Obesity Qualifiers: Obesity type: due to excess calories Obesity classification: adult class 3 (BMI >= 40) Serious obesity comorbidity presence: with serious comorbidity Body mass index: BMI 40.0-44.9 Qualified Code(s): E66.01 - Morbid (severe) obesity due to excess calories; Z68.41 - Body mass index [BMI]40.0-44.9, adult Is this a current diagnosis for this admission?: Yes Plan: Lifestyle modification including dietary change and exercise recommended - Plan Summary Summary: Plan to discharge home tomorrow following morning labs. I do not believe changes in patient home insulin regimen are necessary at this time, believe DKA was a result of non-compliance not inadequate coverage. - Time Time Spent with patient: 15-24 minutes Medications reviewed and adjusted accordingly: Yes Anticipated Discharge Disposition: Home, Self Care Anticipated Discharge Timeframe: within 24 hours
[2020-02-18] MEDS ORDERED: INSULIN LISPRO 100 UNIT/ML 3 ML VIAL SUBCUT ONE ×2 (18:00)
[2020-02-19 06:06] LABS: ANION GAP 8 (5-19); BLOOD UREA NITROGEN 7 mg/dL (7-20); CALCIUM 8.5 mg/dL (8.4-10.2); CARBON DIOXIDE 20 mmol/L (22-30); CHLORIDE 107 mmol/L (98-107); GLUCOSE 169 mg/dL (75-110); POTASSIUM 3.8 mmol/L (3.6-5.0)
[2020-02-19] MEDS: INSULIN LISPRO 100 UNIT/ML 3 ML VIAL SUBCUT SCH ×2 (08:23→12:41)
[2020-02-19] MEDS: LEVOTHYROXINE SODIUM 0.1 MG TABLET PO SCH (09:34)
[2020-02-19 12:19] VITALS: BP 121/78
--- NOTE | 2020-02-19 14:17 | PDOC DISCHARGE SUMMARY ---
Impression - Admit/DC Date/PCP Admission Date/Primary Care Provider: 02/17/20 19:11 Discharge Date: 02/19/20 - Discharge Diagnosis (1) Diabetic ketoacidosis Is this a current diagnosis for this admission?: Yes (2) Metabolic acidosis Is this a current diagnosis for this admission?: Yes (3) Poorly controlled type 1 diabetes mellitus Is this a current diagnosis for this admission?: Yes (4) Hypothyroidism Is this a current diagnosis for this admission?: Yes (5) Obesity Is this a current diagnosis for this admission?: Yes - Additional Information Resuscitation Status: Full Code Discharge Diet: Diabetic Discharge Activity: Activity As Tolerated Referrals: [facility] [Outside] - 02/21/20 11:00 am Prescriptions: Insulin Glargine,Hum.rec.anlog [Basaglar Kwikpen U-100] 60 unit SQ QHS #5 Home Medications: Insulin Aspart [Novolog] 0 unit SQ .SLIDING SCALE 02/17/20 Levothyroxine Sodium [Synthroid 0.1 mg Tablet] 0.1 mg PO DAILY 02/17/20 Insulin Glargine,Hum.rec.anlog [Basaglar Kwikpen U-100] 60 unit SQ QHS #5 02/19/20 History of Present Illiness History of Present Illness: As per admitting HPI on 02/17/2020 "DASH DOYLE is a 34 year old female with a history of type 1 diabetes, obesity and Madison's thyroiditis who presents to ER complaining of generalized abdominal pain, nausea, generalized weakness, lightheadedness. Patient states that he has been having a burning epigastric pain for the past 2 days. She feels very nauseated but that she has been having dry hiccups. She states that she has been having difficulty affording her insulin and she has missed her insulin since yesterday. She endorses polydipsia and polyuria but denies any history of dysuria. She reports that she has had multiple episodes of DKA in the past due to running out of her insulin. She denies any fever, chills, cough, runny nose, nasal congestion, chest pain, shortness of breath, palpitation, or weakness of extremities. Patient also denies any recent sick contact history." Hospital Course Hospital Course: (1) Diabetic ketoacidosis Initial labs: VBG showed a pH of 7.14, had anion gap of 24 with a bicarb of 11 and urine positive for ketones Resolved with IV hydration, potassium repletion, NPO, insulin drip. Upon resolution discontinued drip transitioned to home Lantus (total 55u today) and prandial sliding scale. Appointment with [facility] 02/21/2020 at 11am. Scheduled to receive short acting insulin at that time. Increased Basaglar 55u to 60u QHS. Provided rx for this. Provided coupon in addition to resources provided by certified adapted physical educator and discharge planning. (2) Metabolic acidosis Anion gap metabolic acidosis secondary to DKA. Anion gap has closed. Carbon dioxide 20. Treatment as above. (3) Poorly controlled type 1 diabetes mellitus Hem A1c 8.1%, goal Hem A1c 6.5% Discussed with patient importance of glycemic control. Myself, embedded case manager, discharge planning and certified adapted physical educator provided pt support with medication management. Tx as above. (4) Hypothyroidism Continue levothyroxine TSH 0.94. (5) Obesity Lifestyle modification including dietary change and exercise recommended Physical Exam Vital Signs: Temp Pulse Resp BP Pulse Ox 97.8 F 69 18 121/78 100 02/19/20 12:43 02/19/20 12:43 02/19/20 12:43 02/19/20 12:43 02/19/20 12:43 Intake & Output 02/18/20 02/19/20 02/20/20 06:59 06:59 06:59 Intake Total 3506 2240 Output Total 300 Balance 3206 2240 Weight 111.8 kg 111.1 kg Additional comments: General appearance: PRESENT: no acute distress, cooperative, morbidly obese Head exam: PRESENT: atraumatic, normocephalic Eye exam: PRESENT: conjunctiva pink. ABSENT: scleral icterus Mouth exam: PRESENT: moist, tongue midline Neck exam: PRESENT: full ROM. ABSENT: tenderness Respiratory exam: PRESENT: clear to auscultation luis, symmetrical, unlabored. ABSENT: tachypnea, wheezes Cardiovascular exam: PRESENT: RRR, +S1, +S2. ABSENT: diastolic murmur, systolic murmur Pulses: PRESENT: normal radial pulses GI/Abdominal exam: PRESENT: normal bowel sounds, soft. ABSENT: distended, firm, tenderness Extremities exam: PRESENT: full ROM. ABSENT: clubbing, pedal edema Musculoskeletal exam: PRESENT: ambulatory, full ROM. ABSENT: deformity, dislocation Neurological exam: PRESENT: alert, awake, oriented to person, oriented to place, oriented to time, oriented to situation, CN II-XII grossly intact. ABSENT: altered, motor sensory deficit Psychiatric exam: PRESENT: appropriate affect, normal mood Skin exam: PRESENT: dry, intact, warm Results Laboratory Results: WBC 5.7 10^3/uL (4.0-10.5) 02/18/20 05:35 RBC 4.01 10^6/uL (3.72-5.28) 02/18/20 05:35 Hgb 12.6 g/dL (12.0-15.5) 02/18/20 05:35 Hct 35.6 % (36.0-47.0) L 02/18/20 05:35 MCV 89 fl (80-97) D 02/18/20 05:35 MCH 31.5 pg (27.0-33.4) 02/18/20 05:35 MCHC 35.4 g/dL (32.0-36.0) 02/18/20 05:35 RDW 11.7 % (11.5-14.0) 02/18/20 05:35 Plt Count 287 10^3/uL (150-450) 02/18/20 05:35 Lymph % (Auto) 40.9 % (13-45) 02/18/20 05:35 [place] % (Auto) 7.4 % (3-13) 02/18/20 05:35 Eos % (Auto) 4.7 % (0-6) 02/18/20 05:35 Baso % (Auto) 0.7 % (0-2) 02/18/20 05:35 Absolute Neuts (auto) 2.7 10^3/uL (1.7-8.2) 02/18/20 05:35 Absolute Lymphs (auto) 2.4 10^3/uL (0.5-4.7) 02/18/20 05:35 Absolute Monos (auto) 0.4 10^3/uL (0.1-1.4) 02/18/20 05:35 Absolute Eos (auto) 0.3 10^3/uL (0.0-0.6) 02/18/20 05:35 Absolute Basos (auto) 0.0 10^3/uL (0.0-0.2) 02/18/20 05:35 Seg Neutrophils % 46.3 % (42-78) 02/18/20 05:35 VBG pH 7.14 (7.30-7.42) L* 02/17/20 18:38 VBG pCO2 25.7 mmHg (35-63) L 02/17/20 18:38 VBG HCO3 8.6 mmol/L (20-32) L 02/17/20 18:38 VBG Base Excess -18.6 mmol/L 02/17/20 18:38 Sodium 134.7 mmol/L (137-145) L 02/19/20 05:08 Potassium 3.8 mmol/L (3.6-5.0) 02/19/20 05:08 Chloride 107 mmol/L (98-107) 02/19/20 05:08 Carbon Dioxide 20 mmol/L (22-30) L 02/19/20 05:08 Anion Gap 8 (5-19) 02/19/20 05:08 BUN 7 mg/dL (7-20) 02/19/20 05:08 Creatinine 0.42 mg/dL (0.52-1.25) L 02/19/20 05:08 Est GFR ( Amer) > 60 (>60) 02/19/20 05:08 Est GFR (MDRD) Non-Af > 60 (>60) 02/19/20 05:08 Glucose 169 mg/dL (75-110) H 02/19/20 05:08 POC Glucose 271 mg/dL (70-110) H 02/19/20 11:58 Hemoglobin A1c % 8.1 % (4.7-6.0) H 02/18/20 05:35 Calcium 8.5 mg/dL (8.4-10.2) 02/19/20 05:08 Total Bilirubin 0.8 mg/dL (0.2-1.3) 02/17/20 17:00 Direct Bilirubin 0.3 mg/dL (0.0-0.4) 02/17/20 17:00 Neonat Total Bilirubin Not Reportable 02/17/20 17:00 Neonat Direct Bilirubin Not Reportable 02/17/20 17:00 Neonat Indirect Bili Not Reportable 02/17/20 17:00 AST 28 U/L (14-36) 02/17/20 17:00 ALT 27 U/L (<35) 02/17/20 17:00 Alkaline Phosphatase 162 U/L (38-126) H 02/17/20 17:00 Total Protein 7.1 g/dL (6.3-8.2) 02/17/20 17:00 Albumin 4.4 g/dL (3.5-5.0) 02/17/20 17:00 TSH 0.94 uIU/mL (0.47-4.68) 02/18/20 05:35 Urine Color YELLOW 02/17/20 16:38 Urine Appearance SLIGHTLY-CLOUDY 02/17/20 16:38 Urine pH 5.0 (5.0-9.0) 02/17/20 16:38 Ur Specific [place] 1.028 02/17/20 16:38 Urine Protein NEGATIVE mg/dL (NEGATIVE) 02/17/20 16:38 Urine Glucose (UA) >=500 mg/dL (NEGATIVE) H 02/17/20 16:38 Urine Ketones 80 mg/dL (NEGATIVE) H 02/17/20 16:38 Urine Blood NEGATIVE (NEGATIVE) 02/17/20 16:38 Urine Nitrite NEGATIVE (NEGATIVE) 02/17/20 16:38 Urine Bilirubin NEGATIVE (NEGATIVE) 02/17/20 16:38 Urine Urobilinogen NEGATIVE mg/dL (<2.0) 02/17/20 16:38 Ur Leukocyte Esterase NEGATIVE (NEGATIVE) 02/17/20 16:38 Urine WBC (Auto) 0 /HPF 02/17/20 16:38 Urine RBC (Auto) 0 /HPF 02/17/20 16:38 Squamous Epi Cells Auto 10 /HPF 02/17/20 16:38 Urine Mucus (Auto) RARE /LPF 02/17/20 16:38 Urine Ascorbic Acid NEGATIVE (NEGATIVE) 02/17/20 16:38 Urine HCG, Qual NEGATIVE (NEGATIVE) 02/17/20 16:38 Plan Health Concerns: Poorly controlled DM at great risk for recurrent DKA. Unable to obtain insulin due to insurance and financial issues. Plan of Treatment: Increased your long-acting insulin (Basaglar) from 55 units at night to 60 units at night. Continue with sliding scale with meals. F/u with [facility] (02/21/2020) at 11am. They will provide you with sliding scale insulin. Regarding Basaglar, provided coupon and multiple different resources for finances. Goals: Current henA1c 8% goal of 6.5% obtainable with tighter glycemic control. Time Spent: Greater than 30 Minutes Stroke Is this a Stroke Patient?: No Acute Heart Failure Is this a Heart Failure Patient?: No
[2020-02-19] MEDS ORDERED: INSULIN GLARGINE,HUM.REC.ANLOG 1,000 UNIT/10 ML VIAL SUBCUT ONE (19:00)
== END 2020-02-19 13:15 | disposition home or self-care (01) | DRG 638 ==
LOC: ER 16:18 → EH 19:11 → 3W 23:30
PROVIDERS: ADMIT Student in an Organized Health Care Education/Training Program; ATTEND Physician Assistant
DX: E10.10 Type 1 diabetes mellitus with ketoacidosis without coma (principal); Z68.41 Body mass index [BMI] 40.0-44.9, adult; F17.200 Nicotine dependence, unspecified, uncomplicated; E66.9 Obesity, unspecified; E06.3 Autoimmune thyroiditis; T38.3X6A Underdosing of insulin and oral hypoglycemic [antidiabetic] drugs, initial encounter; Z79.4 Long term (current) use of insulin; Z79.890 Hormone replacement therapy; Z91.120 Patient's intentional underdosing of medication regimen due to financial hardship; Z59.7 Insufficient social insurance and welfare support; Z71.3 Dietary counseling and surveillance
CPT/HCPCS: 36415; 80048; 80053; 81001; 81025; 82803; 82962; 83036; 84443; 85025; 93005; 93010; 96361; 96374; 96375; 99284; J1650; J1815; J2270; J2405; J3480; J7030; J7050